=== PATIENT | male | born 1960 | race Caucasian/White ===

== ENCOUNTER 2018-02-13 09:50 | Inpatient (IN) | payer OTHER, MEDICAID ==
[~2018-02-13] VITALS: Ht 177.8 cm; Wt 65.8 kg
--- NOTE | 2018-02-13 10:00 | NUR ---
[id number]: GENERALIZED WEAKNESS. UNABLE TO CARE FOR SELF. TRANSIENT. VSS. NO CHEST PAIN, NO SOB,.
[2018-02-13] MEDS ORDERED: IV NS 0.9% 500 ML BAG IV ONE (10:30)
[2018-02-13 10:34] LABS: BASOPHILS % (AUTO) 0.7 % (0.0-2.0); HEMATOCRIT 33 % (39-51); HEMOGLOBIN 11.4 g/dL (13.5-17.5); LYMPHOCYTES # (AUTO) 1.4 /CMM (0.8-4.8); LYMPHOCYTES % (AUTO) 23.1 % (20.0-44.0); MEAN CORPUSCULAR HGB CONC 34 g/dl (31.0-36.0); MEAN CORPUSCULAR VOLUME 90 fL (80-96); MONOCYTES # (AUTO) 0.5 /CMM (0.1-1.30); MONOCYTES % (AUTO) 7.9 % (2.0-12.0); NEUTROPHILS # (AUTO) 3.9 /CMM (1.8-8.9); NEUTROPHILS % (AUTO) 62.3 % (43.0-81.0); PLATELET COUNT (AUTO) 310 /CMM (150-450); RED BLOOD CELL COUNT(AUTO) 3.69 MIL/uL (4.5-6.0); WHITE BLOOD COUNT (AUTO) 6.2 K/uL (4.3-11.0)
--- NOTE | 2018-02-13 10:41 | NUR ---
xray in progress at BS.
[2018-02-13 10:43] LABS: CALCIUM, SERUM 8.8 mg/dL (8.5-10.1); CARBON DIOXIDE 31 mmol/L (21-32); CHLORIDE 108 mmol/L (98-107); GLUCOSE 93 mg/dL (74-106); SODIUM SERUM 142 mmol/L (136-145); UREA NITROGEN, BLOOD 17 mg/dL (7-18)
[2018-02-13 10:44] LABS: CREATININE 0.8 mg/dL (0.6-1.3)
[2018-02-13 10:47] LABS: INR 0.89 (0.85-1.15)
[2018-02-13 10:49] LABS: ALANINE AMINOTRANSFERASE 20 U/L (12-78); ALKALINE PHOSPHATASE 69 U/L (46-116); ASPARTATE AMINOTRANSFERASE 18 U/L (15-37); BILIRUBIN,DIRECT 0.1 mg/dL (0.0-0.2); BILIRUBIN,TOTAL 0.2 mg/dL (0.2-1.0); LIPASE 188 U/L (73-393); TOTAL PROTEIN, SERUM 6.2 g/dL (6.4-8.2)
[2018-02-13 10:54] LABS: TROPONIN I < 0.017 ng/mL (0.00-0.056)
--- NOTE | 2018-02-13 11:12 | NUR ---
CALLED [employer] COOLING PAN TENDER.
--- NOTE | 2018-02-13 11:15 | NUR ---
ALEX PROGRAM ASSOCIATE AT
--- NOTE | 2018-02-13 11:45 | NUR ---
[facility] PAGED, CALI HERMAN DATA PROCESSING MECHANIC
--- NOTE | 2018-02-13 11:45 | NUR ---
CALLED NURSING SUP. FOR MS BED
--- NOTE | 2018-02-13 11:45 | NUR ---
MONA received a call from Gina in ED requesting for SW to assess patient for placement options. Pt. is a 57 year old male who was admitted to [facility] for generalized weakness. Pt's [facility] ([facility] coordinator Eder was bedside and brought the pt. to [facility]. Pt. was asleep and unable to provide any history. MONA was able to get history from Eder. According to Eder, Pt. is homeless and has been for the past 6/7 months. Pt. was in a 20 year old relationship with a significant other who left the pt. once he was diagnosed with Multiple Sclerosis. According to Eder, pt's health is deteriorating and he is unable to care for himself. Pt. uses a walker to ambulate and has unsteady gait and frequent falls. Pt. has a history of alcohol/ substance abuse but Eder was unsure if pt. is using at this time. Pt. has history of mental illness and a history of psychiatric hospitalization. Eder is looking to find jail for the pt. for tonight if pt. is not hospitalized. However, pt. needs some assistance with his daily care and Eder is concerned of pt. having frequent falls. MONA gave Eder contact information to Jorge from [facility] ,and booklet of assisted livings for [facility]. MONA also informed Eder if pt. is hospitalized a physical therapy consultation will be done and depending on pt's needs an appropriate placement will be found upon discharge. MONA updated Dr. Rangel the aforementioned information.
[2018-02-13] MEDS ORDERED: FAMO-131 PO (11:56)
[2018-02-13] MEDS ORDERED: TAMS0.4C34 PO (11:56)
[2018-02-13] MEDS ORDERED: GABA-534 PO (11:56)
--- NOTE | 2018-02-13 11:56 | NUR ---
REPORT GIVEN TO ANA SELF FOR JONAH
[2018-02-13] MEDS ORDERED: MAG HYDROX/AL HYDROX/SIMETH 30 ML UDC PO PRN (12:30)
[2018-02-13] MEDS ORDERED: ONDANSETRON HCL/PF 4 MG/2 ML VIAL IVP PRN (12:30)
[2018-02-13] MEDS ORDERED: Z GUARD REMEDY 2 OZ OINT TP PRN (12:30)
[2018-02-13] MEDS ORDERED: ACETAMINOPHEN 325 MG TABLET PO PRN (12:30)
[2018-02-13] MEDS ORDERED: MAGNESIUM HYDROXIDE 30 ML UDC PO PRN (12:30)
[2018-02-13 13:00] VITALS: BP 124/75
--- NOTE | 2018-02-13 13:00 | NUR ---
MS 2 ADMITTING NOTES ADMITTED FROM ER WITH DX OF GEN WEAKNESS.PT COMFORTABLY SLEEPING AND REFUSED TO HAVE VITALS AND SKIN ASSESSMENT BE CHECKED.PT HAS EPISODES OF HITTING STAFF.WILL TRY LATER.RESPIRATIONS NON LABORED IN ROOM AIR.MED RECON PENDING PT UNCOOPERATIVE.SPLINTING OF RT HAND DONE IN ER.DRESSING TO RT HAND CLEAN AND DRY.WITH IV H/L INTACT TO RT AC.UNABLE TO HOOK IVF 1/2 NS -PT IS UNCOOPERATIVE.NO S/S OF PAIN OR DISTRESS.CALL LIGHT PLACED WITHIN REACH.
[2018-02-13] MEDS: FAMOTIDINE (20 MG) 20 MG TABLET PO SCH (18:47)
--- NOTE | 2018-02-13 19:00 | NUR ---
PT WAS SEEN BY CALI HERMAN NP AND PT IS UNCOOPERATIVE HESITANT TO HAVE BODY CHECK DONE.QUICK BODY CHECK WAS DONE AND UNABLE TO TAKE PHOTOS AFTER PROVIDING PT WARM BLANKET.WITH ABRASIONS AND SCABS NOTED ON THE FACE AND RT KNEE.PT STATED THAT HE HAD A LOT OF FALLS IN THE PAST AND DENIES TAKING ALCOHOL BUT TAKES MARIJUANA FOR HIS MULTIPLE SCLEROSIS,SMOKES 10 STICKS OF CIGARETTES A DAY.ENDORSED TO NIGHT NURSE TO TAKE PHOTOS OF THE SKIN ISSUES.NO S/S OF PAIN OR DISTRESS.PT REFUSED TO BE BOTHERED AND WENT BACK TO SLEEP.ABLE TO INFUSE IVF OF 1/2 NS AT 75 ML/HR INFUSING WELL TO RT AC.
[2018-02-13] MEDS: IV 1/2NS 1000 ML 1,000 ML IV PRN (19:13)
--- NOTE | 2018-02-13 19:30 | NUR ---
RECEIVED PATIENT IN BED WITH EYES CLOSED, EASILY AROUSABLE. AO X 3, ABLE TO MAKE NEEDS KNOWN. NO ACUTE DISTRESS NOTED. DENIES PAIN AT THIS TIME. IV SITE PATENT, INTACT; FLUSHED. RIGHT HAND SPLINT INTACT. PATIENT REFUSED SKIN CHECK. SAFETY REMINDERS GIVEN. ON LOW BED WITH BILATERAL UPPER SIDE RAILS UP. CALL LIAO WITHIN EASY REACH. WILL CONTINUE TO MONITOR.
[2018-02-13 20:00] VITALS: BP 127/70
[2018-02-13] MEDS: HYDROCODONE/APAP 5/325MG 1 EACH TABLET PO PRN (22:00)
[2018-02-13] MEDS ORDERED: TAMSULOSIN 0.4 MG CAP.SR.24H PO SCH (22:00)
[2018-02-13] MEDS ORDERED: ATORVASTATIN 40 MG TABLET PO SCH (22:00)
--- NOTE | 2018-02-14 06:31 | NUR ---
PATIENT ASLEEP, EASILY AROUSABLE. RESPIRATIONS EVEN. NO SIGNS OF PAIN NOTED. DUE MEDS GIVEN WITH NO ASE NOTED. NEEDS ATTENDED. KEPT CLEAN, DRY, AND COMFORTABLE. PATIENT REFUSED BLOOD DRAW AND SKIN CHECK THIS MORNING. SAFETY PRECAUTIONS AND COMFORT MEASURES IN PLACE. WILL GIVE REPORT TO DAY SHIFT FOR CONTINUITY OF CARE. Addendum: 02/14/18 at 0647 by VITA DOLAN RN PATIENT REFUSED TO BE CLEANED IN AM.
[2018-02-14 07:08] LABS: APPEARANCE,URINE CLEAR (CLEAR); BILIRUBIN,URINE NEGATIVE (NEGATIVE); BLOOD, URINE NEGATIVE Ery/uL (NEGATIVE); COLOR,URINE YELLOW (YELLOW); KETONES,URINE NEGATIVE (NEGATIVE); LEUKOCYTE ESTERASE ,URINE NEGATIVE (NEGATIVE); NITRITE, URINE NEGATIVE (NEGATIVE); PH,URINE 7.5 (5.0-8.0); PROTEIN,URINE NEGATIVE (NEGATIVE); UGLUCOSE NEGATIVE (NEGATIVE); UROBILINOGEN,URINE 0.2 EU/dL (0.2)
--- NOTE | 2018-02-14 07:23 | NUR ---
MS RN OPENING NOTES RECEIVED PT FROM NIGHTSHIFT NURSE IN STABLE CONDITION. PT IS A/O X2. NO SOB OR SIGNS OF DISTRESS NOTED. BREATHING IS EVEN AND UNLABORED. PT DENIES ANY PAIN AT THIS TIME. PER NIGHTSHIFT NURSE, PT REFUSED AM LAB DRAWS ALONG WITH AM CARE AND SKIN ASSESSMENT. IV TO RIGHT AC NOTED TO BE PATEN AND INTACT. NO REDNESS OR SIGNS OF INFILTRATION NOTED. BED IN LOW LOCKED POSITION, SIDE RAILS UP X3, CALL LIGHT WITHIN REACH, BED ALARM ON. WILL CONTINUE TO MONITOR.
[2018-02-14] MEDS ORDERED: PANTOPRAZOLE 40 MG TABLET.DR PO SCH (07:30)
[2018-02-14] MEDS: IV 1/2NS 1000 ML 1,000 ML IV PRN (08:40)
[2018-02-14] MEDS: FAMOTIDINE (20 MG) 20 MG TABLET PO SCH (08:40)
[2018-02-14] MEDS ORDERED: ASPIRIN 81 MG TAB.CHEW PO SCH (09:00)
[2018-02-14] MEDS ORDERED: NICOTINE PATCH (7MG) 7 MG PATCH.TD24 TD SCH (09:00)
[2018-02-14] MEDS: HYDROCODONE/APAP 5/325MG 1 EACH TABLET PO PRN (11:17)
--- NOTE | 2018-02-14 16:11 | NUR ---
MS RN NOTES: IV PT REMOVED HIS IV AND STATES THAT HE DOES NOT WANT ANOTHER IN. CALI THE LINES TENDER WAS MADE AWARE.
--- NOTE | 2018-02-14 16:34 | NUR ---
MS RN NOTES: AMA PT LEFT AGAINST THE MEDICAL ADVICE OF TH MANAGER TRANSMISSION. RISKS ASSOCIATED WITH LEAVING AMA WERE DISCUSSED WITH PT, HOWEVER HE WAS PERSISTENT ON LEAVING. PER PT "I'M GETTING OUT OF THIS CRAP, AND GOING TO A [facility]. I DON'T NEED TO BE HERE". CALI THE MANAGER TRANSMISSION WAS MADE AWARE ALONG WITH THE NURSE MOSAIC LAYER. PT SIGNED AMA DOCUMENT ALONG WITH BELONGINGS FORM. PT REFUSED [employer]ERIALS AND LEFT WITH ALL BELONGINGS WITH THE EXCEPTION OF A SEATER WHICH HE STATED THAT HE DID NOT WANT. INCIDENT REPORT WILL BE COMPLETED.
--- NOTE | 2018-02-14 18:26 | NUR ---
AMA FORM COMPLETED: Unique Id: [id number]
--- NOTE | 2018-02-16 12:04 | NUR ---
SW contacted Pt's [facility] ([facility] coordinator Eder and informed him that pt. went Against Medical Advice yesterday.
== END 2018-02-14 16:34 | disposition left against medical advice (07) | DRG 74 ==
LOC: ER 09:52 → MEDSG2 11:57 → TELE 13:36 → MEDSG2 14:15
PROVIDERS: ADMIT Registered Nurse; ATTEND Registered Nurse
DX: G90.8 Other disorders of autonomic nervous system (principal); K21.9 Gastro-esophageal reflux disease without esophagitis; S62.306A Unspecified fracture of fifth metacarpal bone, right hand, initial encounter for closed fracture; W19.XXXA Unspecified fall, initial encounter; S00.81XA Abrasion of other part of head, initial encounter; Z73.6 Limitation of activities due to disability; Z86.73 Personal history of transient ischemic attack (TIA), and cerebral infarction without residual deficits; Z79.899 Other long term (current) drug therapy; S80.819A Abrasion, unspecified lower leg, initial encounter; Y92.009 Unspecified place in unspecified non-institutional (private) residence as the place of occurrence of the external cause; Z72.0 Tobacco use; Z91.81 History of falling; Z59.0 Homelessness; N40.0 Benign prostatic hyperplasia without lower urinary tract symptoms
CPT/HCPCS: 36415; 70450-TC; 71045-TC; 73130-TC; 80048-TC; 80076-TC; 81000-TC; 82550-TC; 83690-TC; 84484-TC; 85025-TC; 85730-TC; 87081-TC; 93307-TC; A4606; J3490; J7040; Z7610

== ENCOUNTER 2024-08-02 18:07 | Inpatient (IN) | payer MEDICARE, OTHER ==
[~2024-08-02] VITALS: Ht 167.6 cm; Wt 51.3 kg
[~2024-08-02 18:07] MED LIST: FAMO-131 PO; GABA-534 PO; TAMS0.4C34 PO
[2024-08-02 18:48] LABS: BASOPHILS # (AUTO) 0.1 K/uL (0.0-0.2); BASOPHILS % (AUTO) 1.3 % (0.0-2.0); EOSINOPHILS # (AUTO) 0.3 K/uL (0.0-0.7); EOSINOPHILS % (AUTO) 4.7 % (0.0-6.0); HEMATOCRIT 41 % (39-51); HEMOGLOBIN 13.5 g/dL (13.5-17.5); LYMPHOCYTES # (AUTO) 1.5 K/uL (0.8-4.8); LYMPHOCYTES % (AUTO) 26.8 % (20.0-44.0); MEAN CORPUSCULAR HEMOGLOBIN 31 PG (26.0-33.0); MEAN CORPUSCULAR HGB CONC 33 g/dl (31.0-36.0); MEAN CORPUSCULAR VOLUME 93 fL (80-96); MONOCYTES # (AUTO) 0.5 K/uL (0.1-1.30); MONOCYTES % (AUTO) 8.4 % (2.0-12.0); NEUTROPHILS # (AUTO) 3.3 K/uL (1.8-8.9); NEUTROPHILS % (AUTO) 58.8 % (43.0-81.0); PLATELET COUNT (AUTO) 304 K/uL (150-450); RED BLOOD CELL COUNT(AUTO) 4.42 MIL/uL (4.5-6.0); RED CELL DISTRIBUTION WIDTH 14.2 % (11.5-15.0); WHITE BLOOD COUNT (AUTO) 5.6 K/uL (4.3-11.0)
[2024-08-02 18:54] LABS: CALCIUM, SERUM 9.4 mg/dL (8.5-10.1); CREATININE 0.7 mg/dL (0.6-1.3); POTASSIUM 4.2 mmol/L (3.5-5.1)
[2024-08-02 19:00] LABS: INR 1.16 (0.91-1.10); PARTIAL THROMBOPLASTIN TIME 25.6 SEC (24.3-34.3); PROTHROMBIN TIME 11.8 SECS (9.2-11.1)
[2024-08-02 19:05] LABS: ALBUMIN 3.1 g/dL (3.4-5.0); BILIRUBIN,DIRECT 0.1 mg/dL (0.0-0.2); BILIRUBIN,TOTAL 0.3 mg/dL (0.2-1.0); TOTAL PROTEIN, SERUM 6.7 g/dL (6.4-8.2)
[2024-08-02] MEDS ORDERED: ACET325T53 PO (19:23)
[2024-08-02] MEDS ORDERED: ATOR20TA PO (19:23)
[2024-08-02] MEDS ORDERED: ASPI-1169 PO (19:23)
[2024-08-02] MEDS ORDERED: GABA600T12 PO (19:23)
[2024-08-02] MEDS ORDERED: AMIN30LI66 PO (19:23)
[2024-08-02] MEDS ORDERED: MULT-213 PO (19:23)
[2024-08-02] MEDS ORDERED: ASCO500T10 PO (19:23)
[2024-08-02] MEDS ORDERED: ACET-73 PO (19:23)
[2024-08-02] MEDS ORDERED: LATA2.5D15 EACHEYE (19:23)
[2024-08-02] MEDS ORDERED: RISP0.2515 PO (19:23)
[2024-08-02] MEDS ORDERED: CHOL500062 PO (19:23)
[2024-08-02] MEDS ORDERED: MIDO2.5T PO (19:23)
[2024-08-02] MEDS ORDERED: CRAN300T PO (19:23)
[2024-08-02] MEDS ORDERED: IPRA3AMP23 NEB ×2 (19:23)
[2024-08-02] MEDS ORDERED: BACL10TA PO (19:23)
[2024-08-02] MEDS ORDERED: DOCU100C36 PO (19:23)
[2024-08-02] MEDS ORDERED: APIX2.5T PO (19:23)
[2024-08-02 19:42] LABS: THYROID STIMULATING HORMONE 0.87 uIU/mL (0.358-3.74)
[2024-08-02] MEDS ORDERED: ONDANSETRON HCL/PF 4 MG/2 ML VIAL IVP PRN (21:00)
[2024-08-02] MEDS ORDERED: Z GUARD REMEDY 4 OZ OINT TP PRN (21:00)
[2024-08-02] MEDS ORDERED: ENOXAPARIN SODIUM 40 MG/0.4 ML DISP.SYRIN SQ SCH (21:00)
[2024-08-02] MEDS ORDERED: MAG HYDROX/AL HYDROX/SIMETH 30 ML UDC PO PRN (21:00)
[2024-08-02] MEDS ORDERED: ZOLPIDEM TARTRATE 5 MG TABLET PO PRN (21:00)
[2024-08-02] MEDS ORDERED: MAGNESIUM HYDROXIDE 30 ML UDC PO PRN (21:00)
[2024-08-02] MEDS ORDERED: Medication Not On Formulary EA (Ipratropium/Albuterol Sulfate (Duoneb 2.5-0.5 Mg/3 Ml So NEB PRN (21:30)
[2024-08-02 22:00] VITALS: BP 114/60; TEMP 98.3; O2SAT 99
[2024-08-02] MEDS: LATANOPROST EYE DROP 0.005% 2.5 ML BOTTLE EACHEYE SCH (22:00)
[2024-08-02] MEDS: TAMSULOSIN 0.4 MG CAP.SR.24H PO SCH (22:30)
[2024-08-02] MEDS ORDERED: ALBUTEROL FS 2.5 MG/0.5 ML VIAL.NEB NEB PRN (22:30)
[2024-08-02] MEDS: ATORVASTATIN 10 MG TABLET PO SCH (22:30)
[2024-08-02] MEDS ORDERED: IPRATROPIUM NEB FS 0.5 MG/2.5 ML AMPUL.NEB IH PRN (22:30)
[2024-08-03] VITALS (7 sets, daily range): BP systolic 117–129; BP diastolic 72–77; TEMP 98.1–98.5; O2SAT 94–99
[2024-08-03] MEDS ORDERED: Medication Not On Formulary EA (Ipratropium/Albuterol Sulfate (Duoneb 2.5-0.5 Mg/3 Ml So NEB SCH
[2024-08-03] MEDS: ASCORBIC ACID 500 MG TABLET PO SCH (08:17)
[2024-08-03] MEDS: PANTOPRAZOLE 40 MG TABLET.DR PO SCH (08:17)
[2024-08-03] MEDS: BACLOFEN (10 MG) 10 MG TABLET PO SCH (08:17)
[2024-08-03] MEDS: GABAPENTIN 300 MG CAPSULE PO SCH (08:17)
[2024-08-03] MEDS: risperiDONE 0.25 MG TABLET PO SCH (08:17)
[2024-08-03] MEDS: CHOLECALCIFEROL 1,000 UNIT TABLET (VIT D3) PO SCH (08:17)
[2024-08-03] MEDS: MULTIVITAMINS,THERAGRAN 1 UDTAB TABLET PO SCH (08:17)
[2024-08-03] MEDS: APIXABAN 2.5 MG TABLET PO SCH (08:19)
[2024-08-03] MEDS: PROSOURCE / PROSTAT (PYXIS) 30 ML UDC PO SCH (08:20)
[2024-08-03] MEDS: MIDODRINE HCL (5MG) 5 MG TABLET PO SCH (09:00)
[2024-08-03] MEDS ORDERED: Medication Not On Formulary EA (Cranberry Extract (Cranberry) 900 MG) PO SCH (09:00)
[2024-08-03 10:24] LABS: BASOPHILS # (AUTO) 0.1 K/uL (0.0-0.2); BASOPHILS % (AUTO) 1.3 % (0.0-2.0); EOSINOPHILS # (AUTO) 0.3 K/uL (0.0-0.7); EOSINOPHILS % (AUTO) 3.9 % (0.0-6.0); HEMATOCRIT 42 % (39-51); HEMOGLOBIN 13.8 g/dL (13.5-17.5); LYMPHOCYTES # (AUTO) 1.7 K/uL (0.8-4.8); LYMPHOCYTES % (AUTO) 22.5 % (20.0-44.0); MEAN CORPUSCULAR HEMOGLOBIN 31 PG (26.0-33.0); MEAN CORPUSCULAR HGB CONC 33 g/dl (31.0-36.0); MEAN CORPUSCULAR VOLUME 92 fL (80-96); MONOCYTES # (AUTO) 0.5 K/uL (0.1-1.30); MONOCYTES % (AUTO) 6.5 % (2.0-12.0); NEUTROPHILS # (AUTO) 4.9 K/uL (1.8-8.9); NEUTROPHILS % (AUTO) 65.8 % (43.0-81.0); PLATELET COUNT (AUTO) 305 K/uL (150-450); RED BLOOD CELL COUNT(AUTO) 4.52 MIL/uL (4.5-6.0); RED CELL DISTRIBUTION WIDTH 14.6 % (11.5-15.0); WHITE BLOOD COUNT (AUTO) 7.5 K/uL (4.3-11.0)
[2024-08-03 10:42] LABS: ALBUMIN 3.1 g/dL (3.4-5.0); BILIRUBIN,DIRECT 0.1 mg/dL (0.0-0.2); BILIRUBIN,TOTAL 0.3 mg/dL (0.2-1.0); CALCIUM, SERUM 9.7 mg/dL (8.5-10.1); CREATININE 0.6 mg/dL (0.6-1.3); MAGNESIUM 2.3 mg/dL (1.8-2.4); POTASSIUM 3.6 mmol/L (3.5-5.1); TOTAL PROTEIN, SERUM 7.1 g/dL (6.4-8.2)
[2024-08-03 10:53] LABS: THYROID STIMULATING HORMONE 1.56 uIU/mL (0.358-3.74)
[2024-08-03] MEDS: ACETAMINOPHEN 325 MG TABLET PO PRN (12:10)
[2024-08-03] MEDS: IV NS 0.9% 1,000 ML IV PRN (12:32)
[2024-08-03] MEDS: IPRATROPIUM NEB FS 0.5 MG/2.5 ML AMPUL.NEB IH SCH (13:13)
[2024-08-03] MEDS: ALBUTEROL FS 2.5 MG/0.5 ML VIAL.NEB NEB SCH (13:13)
[2024-08-03] MEDS: LATANOPROST EYE DROP 0.005% 2.5 ML BOTTLE EACHEYE SCH (21:35)
[2024-08-04] VITALS (12 sets, daily range): BP systolic 102–120; BP diastolic 53–73; TEMP 97.3–98.1; O2SAT 94–100
[2024-08-04 07:57] LABS: BASOPHILS # (AUTO) 0.1 K/uL (0.0-0.2); BASOPHILS % (AUTO) 0.8 % (0.0-2.0); EOSINOPHILS # (AUTO) 0.3 K/uL (0.0-0.7); EOSINOPHILS % (AUTO) 3.2 % (0.0-6.0); HEMATOCRIT 39 % (39-51); HEMOGLOBIN 12.7 g/dL (13.5-17.5); LYMPHOCYTES # (AUTO) 1.6 K/uL (0.8-4.8); LYMPHOCYTES % (AUTO) 18.8 % (20.0-44.0); MEAN CORPUSCULAR HEMOGLOBIN 30 PG (26.0-33.0); MEAN CORPUSCULAR HGB CONC 33 g/dl (31.0-36.0); MEAN CORPUSCULAR VOLUME 91 fL (80-96); MONOCYTES # (AUTO) 0.6 K/uL (0.1-1.30); MONOCYTES % (AUTO) 7.2 % (2.0-12.0); NEUTROPHILS # (AUTO) 5.9 K/uL (1.8-8.9); PLATELET COUNT (AUTO) 263 K/uL (150-450); RED BLOOD CELL COUNT(AUTO) 4.23 MIL/uL (4.5-6.0); RED CELL DISTRIBUTION WIDTH 14.6 % (11.5-15.0); WHITE BLOOD COUNT (AUTO) 8.5 K/uL (4.3-11.0)
[2024-08-04 10:07] LABS: BILIRUBIN,TOTAL 0.2 mg/dL (0.2-1.0); CALCIUM, SERUM 9.6 mg/dL (8.5-10.1); CREATININE 0.6 mg/dL (0.6-1.3); MAGNESIUM 2.2 mg/dL (1.8-2.4); PHOSPHORUS 3.3 mg/dL (2.5-4.9); POTASSIUM 4.5 mmol/L (3.5-5.1); TOTAL PROTEIN, SERUM 6.6 g/dL (6.4-8.2)
[2024-08-04 10:09] LABS: FOLIC ACID 15.5 ng/mL (>3.0)
[2024-08-05 01:45] VITALS: O2SAT 97
[2024-08-05 02:00] VITALS: O2SAT 98
[2024-08-05 04:00] VITALS: BP 114/73; TEMP 98.2; O2SAT 98
[2024-08-05 07:36] VITALS: O2SAT 98
[2024-08-05 08:30] VITALS: BP 121/92; TEMP 97.7; O2SAT 100
== END 2024-08-05 14:14 | DRG 60 ==
LOC: ER 18:20 → MEDSG1 21:14
PROVIDERS: ADMIT Nurse Practitioner Family
DX: G35 Multiple sclerosis (principal); R62.7 Adult failure to thrive; N40.0 Benign prostatic hyperplasia without lower urinary tract symptoms; E88.09 Other disorders of plasma-protein metabolism, not elsewhere classified; E78.5 Hyperlipidemia, unspecified; G62.9 Polyneuropathy, unspecified; R56.9 Unspecified convulsions; H40.9 Unspecified glaucoma; Z79.01 Long term (current) use of anticoagulants; Z79.899 Other long term (current) drug therapy; Z86.73 Personal history of transient ischemic attack (TIA), and cerebral infarction without residual deficits; G24.01 Drug induced subacute dyskinesia; R53.1 Weakness; Z79.51 Long term (current) use of inhaled steroids; Z79.82 Long term (current) use of aspirin; F29 Unspecified psychosis not due to a substance or known physiological condition
CPT/HCPCS: 36415; 70450-TC; 71045-TC; 80048-TC; 80053-TC; 80076-TC; 82607-TC; 83735-TC; 83921; 84100-TC; 84425; 84443-TC; 85025-TC; 85730-TC; 87081-TC; 94760-TC; 94799-TC; A4223; G0378; J7030

== ENCOUNTER 2025-04-12 18:48 | Inpatient (IN) | payer MEDICARE, OTHER ==
[~2025-04-12] VITALS: Ht 167.6 cm; Wt 51.0 kg
[~2025-04-12 18:48] MED LIST changes: +ACET-73 PO; +ACET325T53 PO; +AMIN30LI66 PO; +APIX2.5T PO; +ASCO500T10 PO; +ASPI-1169 PO; +ATOR20TA PO; +BACL10TA PO; +CHOL500062 PO; +CRAN300T PO; +DOCU100C36 PO; -FAMO-131 PO; -GABA-534 PO; +GABA600T12 PO; +IPRA3AMP23 NEB; +LATA2.5D15 EACHEYE; +MIDO2.5T PO; +MULT-213 PO; +RISP0.2515 PO
[2025-04-12] MEDS: IV NS 0.9% 1,000 ML BAG IV ONE (20:41)
[2025-04-12 20:47] LABS: PLATELET COUNT (AUTO) 284 K/uL (150-450); RED BLOOD CELL COUNT(AUTO) 4.20 MIL/uL (4.5-6.0); RED CELL DISTRIBUTION WIDTH 14.2 % (11.5-15.0); WHITE BLOOD COUNT (AUTO) 5.0 K/uL (4.3-11.0)
[2025-04-12 21:01] LABS: CALCIUM, SERUM 9.3 mg/dL (8.5-10.1); CREATININE 0.7 mg/dL (0.6-1.3); SODIUM SERUM 138 mmol/L (136-145); UREA NITROGEN, BLOOD 19 mg/dL (7-18)
[2025-04-12 21:06] LABS: ASPARTATE AMINOTRANSFERASE 17 U/L (15-37); TOTAL PROTEIN, SERUM 6.6 g/dL (6.4-8.2)
[2025-04-12] MEDS ORDERED: CT SWABBABLE VALVE TRANS SET 1 EA INFUS.SET MC ONE (21:23)
[2025-04-12] MEDS ORDERED: IOHEXOL-300 100 ML VIAL IV ONE (21:23)
[2025-04-12] MEDS ORDERED: IV NS 0.9% 250 ML IV ONE (21:24)
[2025-04-12 21:57] LABS: APPEARANCE,URINE CLEAR (CLEAR); BLOOD, URINE 2+ Ery/uL (NEGATIVE); LEUKOCYTE ESTERASE ,URINE 3+ (NEGATIVE); NITRITE, URINE POSITIVE (NEGATIVE); UGLUCOSE NEGATIVE (NEGATIVE)
[2025-04-12 22:00] LABS: ADD URINE CULTURE YES; SQUAMOUS EPITHELIAL CELL,UR Rare /HPF (None Seen)
[2025-04-12 22:01] LABS: URINE AMORPHOUS PHOSPHATES Rare /HPF (None Seen)
[2025-04-12 22:40] VITALS: BP 122/76; TEMP 97.7; O2SAT 97
[2025-04-12] MEDS ORDERED: ZOLPIDEM TARTRATE 5 MG TABLET PO PRN (23:30)
[2025-04-12] MEDS ORDERED: ONDANSETRON HCL/PF 4 MG/2 ML VIAL IVP PRN (23:30)
[2025-04-12] MEDS ORDERED: Z GUARD REMEDY 4 OZ OINT TP PRN (23:30)
[2025-04-12] MEDS ORDERED: MAG HYDROX/AL HYDROX/SIMETH 30 ML UDC PO PRN (23:30)
[2025-04-12] MEDS ORDERED: MAGNESIUM HYDROXIDE 30 ML UDC PO PRN (23:30)
[2025-04-13] VITALS (9 sets, daily range): BP systolic 108–153; BP diastolic 60–70; TEMP 97.3–97.9; O2SAT 94–100
[2025-04-13] MEDS: MINERAL OIL 133 ML (PYXIS) 1 EA ENEMA RC ONE (00:03)
[2025-04-13] MEDS: ENOXAPARIN SODIUM 40 MG/0.4 ML DISP.SYRIN SQ SCH (00:04)
[2025-04-13] MEDS: IV D5/0.45 NACL 1,000 ML IV PRN (00:12)
[2025-04-13] MEDS ORDERED: ACETAMINOPHEN ES 500 MG TABLET PO PRN (00:30)
[2025-04-13] MEDS ORDERED: ACETAMINOPHEN 325 MG TABLET PO PRN (00:30)
[2025-04-13] MEDS ORDERED: DOCUSATE SODIUM 100 MG CAPSULE PO PRN (00:30)
[2025-04-13] MEDS ORDERED: IPRATROPIUM NEB FS 0.5 MG/2.5 ML AMPUL.NEB NEB PRN (07:30)
[2025-04-13] MEDS: PANTOPRAZOLE 40 MG TABLET.DR PO SCH (07:30)
[2025-04-13] MEDS ORDERED: ALBUTEROL FS 2.5 MG/3 ML VIAL.NEB NEB PRN (07:30)
[2025-04-13 07:41] LABS: PLATELET COUNT (AUTO) 245 K/uL (150-450); RED BLOOD CELL COUNT(AUTO) 4.21 MIL/uL (4.5-6.0); RED CELL DISTRIBUTION WIDTH 14.4 % (11.5-15.0); WHITE BLOOD COUNT (AUTO) 6.0 K/uL (4.3-11.0)
[2025-04-13 08:00] LABS: CALCIUM, SERUM 9.0 mg/dL (8.5-10.1); CREATININE 0.5 mg/dL (0.6-1.3); PHOSPHORUS 2.5 mg/dL (2.5-4.9); SODIUM SERUM 140.0 mmol/L (136-145); UREA NITROGEN, BLOOD 12.0 mg/dL (7-18)
[2025-04-13] MEDS: DOCUSATE SODIUM 100 MG CAPSULE PO SCH (08:30)
[2025-04-13] MEDS: GABAPENTIN 300 MG CAPSULE PO SCH (09:00)
[2025-04-13] MEDS ORDERED: Medication Not On Formulary EA (Cranberry Extract (Cranberry) 900 MG) PO SCH (09:00)
[2025-04-13] MEDS: ASPIRIN 81 MG TAB.CHEW PO SCH (09:00)
[2025-04-13] MEDS: CHOLECALCIFEROL 1,000 UNIT TABLET (VIT D3) PO SCH (09:00)
[2025-04-13] MEDS: MULTIVIT W/MINERALS 1 TAB TABLET PO SCH (09:00)
[2025-04-13] MEDS: ASCORBIC ACID 500 MG TABLET PO SCH (09:00)
[2025-04-13] MEDS: PROSOURCE / PROSTAT (PYXIS) 30 ML UDC PO SCH (09:00)
[2025-04-13] MEDS: MIDODRINE HCL (5MG) 5 MG TABLET PO SCH (09:00)
[2025-04-13] MEDS: LACTULOSE 10 G/15 ML UDC (PYXIS) PO SCH (09:00)
[2025-04-13] MEDS: BACLOFEN (10 MG) 10 MG TABLET PO SCH (09:00)
[2025-04-13] MEDS ORDERED: APIXABAN 2.5 MG TABLET PO SCH (09:00)
[2025-04-13] MEDS: NITROFURANTOIN/MONOHYDRATE MACROCRYSTALS 100 MG CAPSULE PO SCH (09:00)
[2025-04-13] MEDS: ALBUTEROL FS 2.5 MG/3 ML VIAL.NEB NEB SCH (09:06)
[2025-04-13] MEDS: IPRATROPIUM NEB FS 0.5 MG/2.5 ML AMPUL.NEB NEB SCH (09:06)
[2025-04-13] MEDS ORDERED: IPRA12.9 INH (09:11)
[2025-04-13] MEDS ORDERED: IPRA12.9 IH (09:11)
[2025-04-13] MEDS ORDERED: PANT40TA2 PO (09:11)
[2025-04-13] MEDS ORDERED: Medication Not On Formulary EA (Ipratropium Bromide (Atrovent Hfa) 1 PUFF) IH PRN (11:30)
[2025-04-13] MEDS ORDERED: Medication Not On Formulary EA (Ipratropium Bromide (Atrovent Hfa) 1 PUFF) INH SCH (12:00)
[2025-04-13] MEDS: TOBRAMYCIN/DEXAMETH OPHTH SUSP 5 ML BOTTLE EACHEYE SCH (12:26)
[2025-04-13] MEDS: ATORVASTATIN 10 MG TABLET PO SCH (21:33)
[2025-04-13] MEDS: TAMSULOSIN 0.4 MG CAP.SR.24H PO SCH (21:33)
[2025-04-13] MEDS: LATANOPROST EYE DROP 0.005% 2.5 ML BOTTLE EACHEYE SCH (22:56)
[2025-04-14] VITALS (11 sets, daily range): BP systolic 98–140; BP diastolic 55–81; TEMP 97.7–98.2; O2SAT 94–97
[2025-04-14] MEDS ORDERED: PANTOPRAZOLE 40 MG TABLET.DR PO SCH (09:00)
[2025-04-14] MEDS ORDERED: BARIUM SULFATE 98% 135 ML SUSP.RECON PO ONE (12:30)
[2025-04-14] MEDS ORDERED: JEVITY 1.2 CAL 1,000 ML BOTTLE GT PRN (15:30)
[2025-04-14] MEDS: ACETAMINOPHEN 325 MG TABLET PO PRN (22:12)
[2025-04-15] VITALS (11 sets, daily range): BP systolic 88–154; BP diastolic 60–85; TEMP 97.9–98.1; O2SAT 94–98
[2025-04-15] MEDS: PANTOPRAZOLE 40 MG/PACK PACK PO SCH (07:49)
[2025-04-16 07:25] VITALS: O2SAT 96
[2025-04-16 07:39] VITALS: O2SAT 98
[2025-04-16 08:18] VITALS: BP 141/80
[2025-04-17] MEDS ORDERED: ENSURE ENLIVE 237 ML LIQUID (VANILLA) PO SCH (09:00)
== END 2025-04-16 12:15 | DRG 640 ==
LOC: ER 18:53 → MED 20:38
PROVIDERS: ADMIT Student in an Organized Health Care Education/Training Program; ATTEND Nurse Practitioner Acute Care
DX: E86.0 Dehydration (principal); E43 Unspecified severe protein-calorie malnutrition; G93.40 Encephalopathy, unspecified; N39.0 Urinary tract infection, site not specified; R64 Cachexia; R13.10 Dysphagia, unspecified; G35 Multiple sclerosis; K52.89 Other specified noninfective gastroenteritis and colitis; E78.5 Hyperlipidemia, unspecified; D64.9 Anemia, unspecified; H40.9 Unspecified glaucoma; I10 Essential (primary) hypertension; K59.00 Constipation, unspecified; R62.7 Adult failure to thrive; Z86.73 Personal history of transient ischemic attack (TIA), and cerebral infarction without residual deficits; G40.909 Epilepsy, unspecified, not intractable, without status epilepticus; Z79.51 Long term (current) use of inhaled steroids; Z79.01 Long term (current) use of anticoagulants; Z79.899 Other long term (current) drug therapy; R79.89 Other specified abnormal findings of blood chemistry; N40.0 Benign prostatic hyperplasia without lower urinary tract symptoms; Z74.09 Other reduced mobility; M62.49 Contracture of muscle, multiple sites; F29 Unspecified psychosis not due to a substance or known physiological condition; D63.8 Anemia in other chronic diseases classified elsewhere
CPT/HCPCS: 36415; 70450-TC; 71045-TC; 74230-TC; 80048-TC; 80076-TC; 81001; 82140-TC; 83690-TC; 83735-TC; 84100-TC; 84443-TC; 84484-TC; 85025-TC; 87081-TC; 87086-TC; 87186-TC; 92526; 92611-TC; 94760-TC; 94799-TC; A4223; G0378; J1650; J3490; J7030; J7050; Q9967